=== PATIENT | male | born 1985 | race Caucasian/White ===

== ENCOUNTER 2020-07-22 11:13 | Emergency (ER) | payer MEDICAID ==
[~2020-07-22] VITALS: Ht 193 cm; Wt 115.9 kg
[2020-07-22] MEDS ORDERED: HYDR-3965 PO (15:11)
[2020-07-22] MEDS ORDERED: NAPR-56 PO (15:11)
[2020-07-22] MEDS ORDERED: CYCL-1 PO (15:11)
== END 2020-07-22 15:19 | disposition home or self-care (01) ==
LOC: ER 11:13
DX: M54.5 Low back pain (principal); Z88.8 Allergy status to other drugs, medicaments and biological substances; Z79.899 Other long term (current) drug therapy
CPT/HCPCS: 99283

== ENCOUNTER 2023-08-05 13:53 | Inpatient (IN) | payer MEDICAID ==
[~2023-08-05] VITALS: Ht 193 cm; Wt 145.9 kg
[~2023-08-05 13:53] MED LIST: CYCL-1 PO
[2023-08-05 15:51] LABS: ALANINE AMINOTRANSFERASE 22 U/L (12-78); ALBUMIN 2.9 G/DL (3.4-5.0); ALBUMIN/GLOBULIN RATIO 0.6 (1.1-1.5); ALKALINE PHOSPHATASE 118 IU/L (46-116); ANION GAP 4 (8-16); ASPARTATE AMINO TRANSFERASE 19 U/L (10-37); BILIRUBIN,TOTAL 0.2 MG/DL (0.1-1.0); BLOOD UREA NITROGEN 21 MG/DL (7-18); BUN/CREATININE RATIO 24.4 (10.0-20.0); CALCIUM 8.8 MG/DL (8.5-10.1); CHLORIDE 100 MMOL/L (99-107); CREATININE 0.86 MG/DL (0.60-1.10); GLUCOSE 167 MG/DL (70-104); MAGNESIUM 2.2 MG/DL (1.5-2.4); POTASSIUM 3.9 MMOL/L (3.5-5.1); SODIUM 137 MMOL/L (135-145); TOTAL CARBON DIOXIDE 32.7 MMOL/L (24-32); TOTAL PROTEIN 7.9 G/DL (6.4-8.2); eCRCL 140 ML/MIN; eGFR > 90 ML/MIN
[2023-08-05] MEDS ORDERED: HYDROcodone/acetaminophen 10/325mg tab PO ONE (16:25)
[2023-08-05 16:35] LABS: HEMATOCRIT 34.1 % (42.0-52.0); HEMOGLOBIN 11.1 g/dl (14.0-17.9); MEAN CORPUSCULAR HEMOGLOBIN 24.8 PG (27.0-31.0); MEAN CORPUSCULAR HGB CONC 32.6 g/dL (33.0-36.5); MEAN CORPUSCULAR VOLUME 76.1 FL (78-98); RED BLOOD COUNT 4.48 X10'6 (4.70-6.10); WHITE BLOOD COUNT 4.1 X10'3 (4.5-11.0)
[2023-08-05 16:37] LABS: BASOPHILS % (AUTO) 0.8 % (0-1); EOSINOPHILS # (AUTO) 0.2 X10'3 (0-0.9); LYMPHOCYTES # (AUTO) 1.5 X10'3 (1.1-4.8); LYMPHOCYTES % (AUTO) 36.1 % (21-51); MEAN PLATELET VOLUME 5.9 FL (7.4-10.4); MONOCYTES # (AUTO) 0.4 X10'3 (0-0.9); MONOCYTES % (AUTO) 9.9 % (2-12); NEUTROPHILS % (AUTO) 48.2 % (42-75); PLATELET COUNT 481 X10'3 (140-440); RED CELL DISTRIBUTION WIDTH 15.1 % (11.5-14.5)
[2023-08-05 17:11] LABS: PRO BRAIN NATRIURETIC PEPTIDE < 30 PG/ML (0-125)
[2023-08-05 17:14] LABS: BILIRUBIN,URINE NEGATIVE (Neg); CLARITY,URINE CLEAR (Clear); COLOR,URINE YELLOW (Yellow); GLUCOSE, URINE NEGATIVE (Neg); KETONES,URINE NEGATIVE (Neg); LEUKOCYTE ESTERASE ,URINE NEGATIVE (Neg); NITRITES, URINE NEGATIVE (Neg); OCCULT BLOOD,URINE NEGATIVE (Neg); PROTEIN,URINE NEGATIVE (Neg); UROBILINOGEN,URINE 0.2 E.U/dL (0.2-1.0)
[2023-08-05 17:18] LABS: UA COLLECTION TYPE CLN CATCH MIDSTREAM; URINE AMPHETAMINE SCREEN POSITIVE (Neg); URINE BARBITUATE SCREEN NEGATIVE (Neg); URINE BENZODIAZEPINES SCREEN NEGATIVE (Neg); URINE CANNABINOID SCREEN NEGATIVE (Neg); URINE COCAINE SCREEN NEGATIVE (Neg); URINE METHADONE SCREEN NEGATIVE (Neg); URINE OPIATE SCREEN NEGATIVE (Neg); URINE PHENCYCLIDINE SCREEN NEGATIVE (Neg)
[2023-08-05] MEDS ORDERED: ondansetron/PF 4mg/2ml inj IV ONE (20:50)
[2023-08-05] MEDS ORDERED: HYDROmorphone 1 mg/ml syringe IV ONE (20:50)
[2023-08-05] MEDS ORDERED: morphine 4 MG/ML inj SYRINge IV ONE (22:35)
[2023-08-05] MEDS ORDERED: metoclopramide 5 mg/ml inj IV PRN (23:20)
[2023-08-05] MEDS ORDERED: diphenhydrAMINE 50 mg/ml inj IV PRN (23:20)
[2023-08-05] MEDS ORDERED: diphenhydrAMINE 25mg capsule PO PRN (23:20)
[2023-08-05] MEDS ORDERED: HYDROcodone/acetaminophen 5mg/325mg tablet PO PRN (23:20)
[2023-08-05] MEDS ORDERED: bisacodyl 10mg suppository rectal RC PRN (23:20)
[2023-08-05] MEDS ORDERED: ondansetron 4mg rapidly disintigrating tab PO PRN (23:20)
[2023-08-05] MEDS ORDERED: acetaminophen 650mg rectal suppository RC PRN (23:20)
[2023-08-05] MEDS ORDERED: acetaminophen 325mg tablet PO PRN ×2 (23:20)
[2023-08-05] MEDS ORDERED: morphine 2 MG/ML inj. syringe IV PRN ×2 (23:20)
[2023-08-05] MEDS ORDERED: ondansetron/PF 4mg/2ml inj IV PRN (23:20)
[2023-08-05] MEDS: normal saline 1000ml 1,000 ML IV SCH (23:20)
[2023-08-05] MEDS ORDERED: mag hydrox/Alum hydrox/simeth 30ml oral suspension PO PRN (23:20)
[2023-08-05] MEDS ORDERED: magnesium hydroxide 30ml (MOM) UD suspension PO PRN (23:20)
[2023-08-05 23:58] LABS: PHOSPHORUS 3.9 MG/DL (2.3-4.5)
[2023-08-06] MEDS: HYDROmorphone inj. 0.5 MG/0.5 ML DISP.SYRIN IV PRN ×2 (00:52→05:48)
[2023-08-06 01:29] LABS: BASOPHILS # (AUTO) 0.1 X10'3 (0-0.2); EOSINOPHILS # (AUTO) 0.1 X10'3 (0-0.9); EOSINOPHILS % (AUTO) 1.4 % (0-6); HEMATOCRIT 31.5 % (42.0-52.0); HEMOGLOBIN 10.7 g/dl (14.0-17.9); LYMPHOCYTES # (AUTO) 1.1 X10'3 (1.1-4.8); LYMPHOCYTES % (AUTO) 15.9 % (21-51); MEAN CORPUSCULAR HEMOGLOBIN 25.6 PG (27.0-31.0); MEAN CORPUSCULAR HGB CONC 33.8 g/dL (33.0-36.5); MEAN CORPUSCULAR VOLUME 75.7 FL (78-98); MONOCYTES # (AUTO) 0.4 X10'3 (0-0.9); MONOCYTES % (AUTO) 5.9 % (2-12); NEUTROPHILS # (AUTO) 5.2 X10'3 (1.8-7.7); NEUTROPHILS % (AUTO) 75.8 % (42-75); PLATELET COUNT 421 X10'3 (140-440); RED BLOOD COUNT 4.17 X10'6 (4.70-6.10); RED CELL DISTRIBUTION WIDTH 14.7 % (11.5-14.5); WHITE BLOOD COUNT 6.9 X10'3 (4.5-11.0)
[2023-08-06 01:43] LABS: APTT 31 SECONDS (22-32); INR 0.9 INR; PROTHROMBIN TIME 10.2 SECONDS (9.0-12.0)
[2023-08-06 01:46] LABS: ALANINE AMINOTRANSFERASE 22 U/L (12-78); ALBUMIN 2.6 G/DL (3.4-5.0); ALBUMIN/GLOBULIN RATIO 0.6 (1.1-1.5); ALKALINE PHOSPHATASE 106 IU/L (46-116); ANION GAP 5 (8-16); ASPARTATE AMINO TRANSFERASE 15 U/L (10-37); BILIRUBIN,TOTAL 0.2 MG/DL (0.1-1.0); BLOOD UREA NITROGEN 16 MG/DL (7-18); BUN/CREATININE RATIO 21.1 (10.0-20.0); CALCIUM 8.5 MG/DL (8.5-10.1); CHLORIDE 103 MMOL/L (99-107); CREATININE 0.76 MG/DL (0.60-1.10); GLUCOSE 180 MG/DL (70-104); POTASSIUM 4.2 MMOL/L (3.5-5.1); SODIUM 138 MMOL/L (135-145); TOTAL CARBON DIOXIDE 30.3 MMOL/L (24-32); eCRCL 159 ML/MIN; eGFR > 90 ML/MIN
[2023-08-06 02:30] VITALS: BP 154/83; PULSE 106; RESP 21; TEMP 98.3; O2SAT 98
[2023-08-06] MEDS: vancomycin/NS 1 GM ADD-VANTAGE 250 ML IV SCH ×3 (04:10→20:26)
[2023-08-06] MEDS: HYDROcodone/acetaminophen 10/325mg tab PO PRN ×2 (06:32→17:25)
[2023-08-06] MEDS: pantoprazole 40mg Tablet.DR PO SCH (06:32)
[2023-08-06 07:00] VITALS: BP 149/82; PULSE 101; RESP 21; TEMP 98.3; O2SAT 96
[2023-08-06] MEDS: docusate sod 100mg capsule PO SCH ×3 (08:05→20:26)
[2023-08-06] MEDS: piperacillin/tazo 4.5gm/100ml 100 ML IV SCH ×3 (08:05→16:19)
[2023-08-06] MEDS: heparin, porcine 5000 units/ml vial SQ SCH ×3 (08:06→16:20)
[2023-08-06] MEDS: HYDROmorphone 1 mg/ml syringe IV PRN ×2 (09:24→16:26)
[2023-08-06] MEDS: normal saline 1000ml 1,000 ML IV SCH ×2 (09:26→20:32)
[2023-08-06 11:00] VITALS: BP 147/75; PULSE 94; RESP 17; TEMP 98.1; O2SAT 98
[2023-08-06] MEDS: fluconazole-Diflucan 200mg/NS 100 ML IV SCH (12:10)
[2023-08-06 15:00] VITALS: BP 110/71; PULSE 87; RESP 14; TEMP 98.3; O2SAT 93
[2023-08-06 22:00] VITALS: BP 137/77; PULSE 86; RESP 19; TEMP 97.9; O2SAT 97
[2023-08-07] MEDS: piperacillin/tazo 4.5gm/100ml 100 ML IV SCH ×4 (00:31→23:13)
[2023-08-07] MEDS: heparin, porcine 5000 units/ml vial SQ SCH ×4 (00:33→23:16)
[2023-08-07] MEDS: HYDROmorphone 1 mg/ml syringe IV PRN ×3 (00:45→17:14)
[2023-08-07 02:00] VITALS: PULSE 91; RESP 21; TEMP 99.9; O2SAT 91
[2023-08-07] MEDS ORDERED: VANCOMYCIN LEVEL IV ONE (03:30)
[2023-08-07] MEDS: HYDROcodone/acetaminophen 10/325mg tab PO PRN ×3 (03:31→19:50)
[2023-08-07 04:00] LABS: ALANINE AMINOTRANSFERASE 19 U/L (12-78); ALBUMIN 2.1 G/DL (3.4-5.0); ALBUMIN/GLOBULIN RATIO 0.5 (1.1-1.5); ALKALINE PHOSPHATASE 114 IU/L (46-116); ANION GAP 5 (8-16); ASPARTATE AMINO TRANSFERASE 23 U/L (10-37); BILIRUBIN,TOTAL 0.2 MG/DL (0.1-1.0); BLOOD UREA NITROGEN 10 MG/DL (7-18); BUN/CREATININE RATIO 11.9 (10.0-20.0); CALCIUM 7.9 MG/DL (8.5-10.1); CHLORIDE 106 MMOL/L (99-107); CREATININE 0.84 MG/DL (0.60-1.10); GLUCOSE 187 MG/DL (70-104); POTASSIUM 3.8 MMOL/L (3.5-5.1); SODIUM 139 MMOL/L (135-145); TOTAL CARBON DIOXIDE 28.2 MMOL/L (24-32); TOTAL PROTEIN 6.3 G/DL (6.4-8.2); VANCOMYCIN,TROUGH 10.4 ug/mL (10.0-20.0); eCRCL 144 ML/MIN; eGFR > 90 ML/MIN
[2023-08-07] MEDS: vancomycin/NS 1 GM ADD-VANTAGE 250 ML IV SCH (04:31)
[2023-08-07] MEDS: normal saline 1000ml 1,000 ML IV SCH ×2 (05:20→16:17)
[2023-08-07 06:00] VITALS: BP 137/80; PULSE 93; RESP 18; TEMP 98; O2SAT 98
[2023-08-07 06:20] LABS: % IRON SATURATION 8 % (11-46); IRON 18 UG/DL (53-167); TOTAL IRON BINDING CAPACITY 217 UG/DL (259-388)
[2023-08-07 06:28] LABS: BASOPHILS % (AUTO) 0.4 % (0-1); EOSINOPHILS # (AUTO) 0.1 X10'3 (0-0.9); EOSINOPHILS % (AUTO) 2.8 % (0-6); HEMATOCRIT 30.7 % (42.0-52.0); HEMOGLOBIN 9.9 g/dl (14.0-17.9); LYMPHOCYTES # (AUTO) 1.3 X10'3 (1.1-4.8); LYMPHOCYTES % (AUTO) 29.8 % (21-51); MEAN CORPUSCULAR HEMOGLOBIN 24.7 PG (27.0-31.0); MEAN CORPUSCULAR HGB CONC 32.3 g/dL (33.0-36.5); MEAN CORPUSCULAR VOLUME 76.3 FL (78-98); MEAN PLATELET VOLUME 6.4 FL (7.4-10.4); MONOCYTES # (AUTO) 0.4 X10'3 (0-0.9); MONOCYTES % (AUTO) 9.3 % (2-12); NEUTROPHILS # (AUTO) 2.5 X10'3 (1.8-7.7); NEUTROPHILS % (AUTO) 57.7 % (42-75); PLATELET COUNT 417 X10'3 (140-440); RED BLOOD COUNT 4.03 X10'6 (4.70-6.10); RED CELL DISTRIBUTION WIDTH 15.2 % (11.5-14.5); WHITE BLOOD COUNT 4.3 X10'3 (4.5-11.0)
[2023-08-07] MEDS: fluconazole-Diflucan 200mg/NS 100 ML IV SCH (08:45)
[2023-08-07] MEDS: docusate sod 100mg capsule PO SCH ×2 (08:48→19:46)
[2023-08-07] MEDS: pantoprazole 40mg Tablet.DR PO SCH (08:52)
[2023-08-07 11:00] VITALS: BP 148/80; PULSE 94; RESP 14; TEMP 98; O2SAT 98
[2023-08-07] MEDS: VANCOmycin 1250MG/NS 250ml Bag 250 ML IV SCH ×2 (12:16→19:45)
[2023-08-07 15:00] VITALS: BP 155/85; PULSE 94; RESP 14; TEMP 98.1; O2SAT 99
[2023-08-07 22:00] VITALS: BP 137/65; PULSE 80; RESP 16; TEMP 97.3; O2SAT 99
[2023-08-07] MEDS: HYDROmorphone inj. 0.5 MG/0.5 ML DISP.SYRIN IV PRN (22:25)
[2023-08-08] MEDS: normal saline 1000ml 1,000 ML IV SCH ×3 (01:20→19:14)
[2023-08-08 02:00] VITALS: BP 133/66; PULSE 83; RESP 17; TEMP 97.7; O2SAT 100
[2023-08-08] MEDS: HYDROcodone/acetaminophen 10/325mg tab PO PRN ×5 (03:29→22:49)
[2023-08-08] MEDS: VANCOmycin 1250MG/NS 250ml Bag 250 ML IV SCH ×3 (03:29→19:09)
[2023-08-08] MEDS: HYDROmorphone 1 mg/ml syringe IV PRN ×3 (03:33→13:49)
[2023-08-08 07:00] VITALS: BP 171/88; PULSE 82; RESP 16; TEMP 97.2; O2SAT 99
[2023-08-08 07:54] LABS: BASOPHILS % (AUTO) 0.7 % (0-1); EOSINOPHILS # (AUTO) 0.1 X10'3 (0-0.9); HEMATOCRIT 31.3 % (42.0-52.0); HEMOGLOBIN 10.2 g/dl (14.0-17.9); LYMPHOCYTES # (AUTO) 1.3 X10'3 (1.1-4.8); LYMPHOCYTES % (AUTO) 26.9 % (21-51); MEAN CORPUSCULAR HEMOGLOBIN 24.9 PG (27.0-31.0); MEAN CORPUSCULAR HGB CONC 32.7 g/dL (33.0-36.5); MEAN PLATELET VOLUME 6.2 FL (7.4-10.4); MONOCYTES # (AUTO) 0.4 X10'3 (0-0.9); MONOCYTES % (AUTO) 8.7 % (2-12); NEUTROPHILS # (AUTO) 2.9 X10'3 (1.8-7.7); NEUTROPHILS % (AUTO) 60.7 % (42-75); PLATELET COUNT 404 X10'3 (140-440); RED BLOOD COUNT 4.12 X10'6 (4.70-6.10); WHITE BLOOD COUNT 4.7 X10'3 (4.5-11.0)
[2023-08-08 08:10] LABS: ALANINE AMINOTRANSFERASE 26 U/L (12-78); ALBUMIN 2.2 G/DL (3.4-5.0); ALBUMIN/GLOBULIN RATIO 0.5 (1.1-1.5); ALKALINE PHOSPHATASE 133 IU/L (46-116); ANION GAP 6 (8-16); ASPARTATE AMINO TRANSFERASE 25 U/L (10-37); BILIRUBIN,TOTAL 0.2 MG/DL (0.1-1.0); BLOOD UREA NITROGEN 9 MG/DL (7-18); BUN/CREATININE RATIO 10.7 (10.0-20.0); CALCIUM 8.3 MG/DL (8.5-10.1); CHLORIDE 106 MMOL/L (99-107); CREATININE 0.84 MG/DL (0.60-1.10); GLUCOSE 138 MG/DL (70-104); POTASSIUM 3.8 MMOL/L (3.5-5.1); SODIUM 139 MMOL/L (135-145); TOTAL CARBON DIOXIDE 27.3 MMOL/L (24-32); TOTAL PROTEIN 6.6 G/DL (6.4-8.2); eCRCL 144 ML/MIN; eGFR > 90 ML/MIN
[2023-08-08] MEDS: docusate sod 100mg capsule PO SCH ×2 (09:11→19:09)
[2023-08-08] MEDS: heparin, porcine 5000 units/ml vial SQ SCH ×3 (09:11→23:12)
[2023-08-08] MEDS: piperacillin/tazo 4.5gm/100ml 100 ML IV SCH ×3 (09:12→23:12)
[2023-08-08] MEDS: pantoprazole 40mg Tablet.DR PO SCH (09:21)
[2023-08-08] MEDS: fluconazole-Diflucan 200mg/NS 100 ML IV SCH (09:21)
[2023-08-08 11:00] VITALS: BP 153/79; PULSE 87; RESP 14; TEMP 97.8; O2SAT 100
[2023-08-08] MEDS ORDERED: VANCOMYCIN LEVEL IV ONE (11:30)
[2023-08-08 15:00] VITALS: BP 138/79; PULSE 93; RESP 24; TEMP 98.3; O2SAT 93
[2023-08-08 18:00] VITALS: BP 139/62; PULSE 77; RESP 18; TEMP 98.1; O2SAT 97
[2023-08-08] MEDS: HYDROmorphone inj. 0.5 MG/0.5 ML DISP.SYRIN IV PRN (19:07)
[2023-08-08 22:00] VITALS: BP 140/75; PULSE 74; RESP 16; TEMP 98.1; O2SAT 97
[2023-08-09] MEDS: HYDROmorphone inj. 0.5 MG/0.5 ML DISP.SYRIN IV PRN ×2 (00:38→05:04)
[2023-08-09] MEDS: temazepam 15mg capsule PO PRN ×3 (00:41→22:48)
[2023-08-09 02:00] VITALS: BP 148/64; PULSE 67; RESP 16; TEMP 97.8; O2SAT 97
[2023-08-09] MEDS: HYDROcodone/acetaminophen 10/325mg tab PO PRN ×2 (03:48→10:33)
[2023-08-09] MEDS: VANCOmycin 1250MG/NS 250ml Bag 250 ML IV SCH ×3 (03:48→19:21)
[2023-08-09 06:00] VITALS: BP 136/61; PULSE 85; RESP 16; TEMP 97.1
[2023-08-09] MEDS: normal saline 1000ml 1,000 ML IV SCH ×2 (10:19→17:55)
[2023-08-09] MEDS: fluconazole-Diflucan 200mg/NS 100 ML IV SCH (10:32)
[2023-08-09] MEDS: piperacillin/tazo 4.5gm/100ml 100 ML IV SCH ×3 (10:32→23:44)
[2023-08-09] MEDS: docusate sod 100mg capsule PO SCH ×2 (10:33→19:20)
[2023-08-09] MEDS: pantoprazole 40mg Tablet.DR PO SCH (10:33)
[2023-08-09 11:00] VITALS: BP 142/79; PULSE 65; RESP 16; TEMP 99.6; O2SAT 96
[2023-08-09] MEDS: heparin, porcine 5000 units/ml vial SQ SCH ×3 (11:24→23:44)
[2023-08-09] MEDS: buprenorphine/naloxone 8MG-2MG SUBlingual film SL SCH ×2 (15:40→21:00)
[2023-08-09 16:00] VITALS: BP 154/78; PULSE 68; RESP 16; TEMP 99
[2023-08-09] MEDS: ascorbic acid 500mg tablet PO SCH (17:51)
[2023-08-09 18:00] VITALS: BP 162/80; PULSE 85; RESP 22; TEMP 98.9; O2SAT 98
[2023-08-09] MEDS: LACTOSE-REDUCED FOOD 237ML LIQUID PO SCH (18:00)
[2023-08-09] MEDS: zinc sulfate 220mg capsule PO SCH (21:00)
[2023-08-09 22:00] VITALS: BP 163/97; PULSE 72; RESP 22; TEMP 98.1; O2SAT 98
[2023-08-10] MEDS: VANCOmycin 1250MG/NS 250ml Bag 250 ML IV SCH ×3 (03:47→11:53)
[2023-08-10] MEDS: normal saline 1000ml 1,000 ML IV SCH ×2 (03:48→13:26)
[2023-08-10 07:00] VITALS: BP 147/71; PULSE 66; RESP 11; TEMP 98.2; O2SAT 98
[2023-08-10 08:00] VITALS: RESP 11; O2SAT 98
[2023-08-10] MEDS ORDERED: multivitamins, therapeutics tablet PO SCH (08:00)
[2023-08-10] MEDS ORDERED: fluconazole 100mg tablet PO SCH (08:00)
[2023-08-10] MEDS ORDERED: azithromycin 250mg tablet PO SCH (08:00)
[2023-08-10] MEDS ORDERED: folic acid 1mg tablet PO SCH (08:00)
[2023-08-10] MEDS: LACTOSE-REDUCED FOOD 237ML LIQUID PO SCH ×2 (08:00→13:25)
[2023-08-10 08:35] LABS: BASOPHILS % (AUTO) 0.5 % (0-1); EOSINOPHILS % (AUTO) 0.7 % (0-6); HEMATOCRIT 31.8 % (42.0-52.0); HEMOGLOBIN 10.5 g/dl (14.0-17.9); LYMPHOCYTES # (AUTO) 1.1 X10'3 (1.1-4.8); LYMPHOCYTES % (AUTO) 16.6 % (21-51); MEAN CORPUSCULAR HEMOGLOBIN 24.8 PG (27.0-31.0); MEAN CORPUSCULAR HGB CONC 32.8 g/dL (33.0-36.5); MEAN CORPUSCULAR VOLUME 75.6 FL (78-98); MEAN PLATELET VOLUME 6.1 FL (7.4-10.4); MONOCYTES # (AUTO) 0.5 X10'3 (0-0.9); MONOCYTES % (AUTO) 7.4 % (2-12); NEUTROPHILS # (AUTO) 4.9 X10'3 (1.8-7.7); NEUTROPHILS % (AUTO) 74.8 % (42-75); PLATELET COUNT 449 X10'3 (140-440); RED BLOOD COUNT 4.21 X10'6 (4.70-6.10); RED CELL DISTRIBUTION WIDTH 15.3 % (11.5-14.5); WHITE BLOOD COUNT 6.5 X10'3 (4.5-11.0)
[2023-08-10 08:49] LABS: ALANINE AMINOTRANSFERASE 32 U/L (12-78); ALBUMIN 2.4 G/DL (3.4-5.0); ALBUMIN/GLOBULIN RATIO 0.5 (1.1-1.5); ALKALINE PHOSPHATASE 167 IU/L (46-116); ANION GAP 9 (8-16); ASPARTATE AMINO TRANSFERASE 22 U/L (10-37); BILIRUBIN,TOTAL 0.3 MG/DL (0.1-1.0); BLOOD UREA NITROGEN 9 MG/DL (7-18); CALCIUM 8.5 MG/DL (8.5-10.1); CHLORIDE 106 MMOL/L (99-107); GLUCOSE 140 MG/DL (70-104); POTASSIUM 3.3 MMOL/L (3.5-5.1); SODIUM 141 MMOL/L (135-145); TOTAL CARBON DIOXIDE 25.8 MMOL/L (24-32); eCRCL 134 ML/MIN; eGFR > 90 ML/MIN
[2023-08-10] MEDS: buprenorphine/naloxone 8MG-2MG SUBlingual film SL SCH ×2 (08:54→13:04)
[2023-08-10] MEDS ORDERED: potassium Cl 20 mEq SR tablet PO PRN (09:15)
[2023-08-10] MEDS ORDERED: potassium Cl 40MEQ/1/2NS 520ml 520 ML IV PRN ×2 (09:15)
[2023-08-10] MEDS: docusate sod 100mg capsule PO SCH (09:23)
[2023-08-10] MEDS: zinc sulfate 220mg capsule PO SCH ×2 (09:23→13:04)
[2023-08-10] MEDS: pantoprazole 40mg Tablet.DR PO SCH (09:23)
[2023-08-10] MEDS: potassium Cl 20 mEq SR tablet PO PRN ×3 (09:23→17:10)
[2023-08-10] MEDS: ascorbic acid 500mg tablet PO SCH ×2 (09:23→17:09)
[2023-08-10] MEDS: heparin, porcine 5000 units/ml vial SQ SCH ×2 (09:24→16:00)
[2023-08-10] MEDS: piperacillin/tazo 4.5gm/100ml 100 ML IV SCH ×2 (09:28)
[2023-08-10 11:00] VITALS: BP 157/76; PULSE 73; RESP 14; TEMP 98.4; O2SAT 98
[2023-08-10 15:38] VITALS: BP 154/72; PULSE 65; RESP 14; TEMP 98.1; O2SAT 99
[2023-08-10] MEDS ORDERED: MEROPENEM 1GM/NS 100ML IVPB 100 ML IV SCH (16:00)
[2023-08-10] MEDS ORDERED: K and/or MAG REPLACEMENT MC SCH (20:00)
== END 2023-08-10 18:00 | DRG 383 ==
LOC: ER 13:53 → ED HOLD 23:24 → PCU 3S 08-06 02:25
PROVIDERS: ADMIT Family Medicine; ATTEND Family Medicine
PROC: 05HB33Z Insertion of Infusion Device into Right Basilic Vein, Percutaneous Approach (ICD-10-PCS; principal; 2023-08-10)
PROC: B54MZZA Ultrasonography of Right Upper Extremity Veins, Guidance (ICD-10-PCS; 2023-08-10)
DX: L03.116 Cellulitis of left lower limb (principal); N17.9 Acute kidney failure, unspecified; E88.09 Other disorders of plasma-protein metabolism, not elsewhere classified; L03.115 Cellulitis of right lower limb; I83.028 Varicose veins of left lower extremity with ulcer other part of lower leg; I83.018 Varicose veins of right lower extremity with ulcer other part of lower leg; D64.9 Anemia, unspecified; L02.413 Cutaneous abscess of right upper limb; L02.414 Cutaneous abscess of left upper limb; B95.62 Methicillin resistant Staphylococcus aureus infection as the cause of diseases classified elsewhere; E66.01 Morbid (severe) obesity due to excess calories; F11.20 Opioid dependence, uncomplicated; F15.229 Other stimulant dependence with intoxication, unspecified; I10 Essential (primary) hypertension; L30.9 Dermatitis, unspecified; Z68.39 Body mass index [BMI] 39.0-39.9, adult; Z72.0 Tobacco use; Z88.8 Allergy status to other drugs, medicaments and biological substances; Z79.899 Other long term (current) drug therapy
CPT/HCPCS: 36410; 36415; 71045; 76937; 80053; 80202; 80305; 81003; 83540; 83550; 83605; 83735; 83880; 84100; 84145; 85025; 85610; 85730; 87040; 87070; 87077; 87081; 87186; 93005; 93925; 93970; 97161; 97530; 99285; A4649; A6196; A6223; A6253; A6446; A6449; C1751; G0378; J1170; J1200; J1450; J1644; J2185; J2270; J2405; J2543; J3370; J7030